=== PATIENT | male | born 1980 | race Caucasian/White ===

== ENCOUNTER 2025-03-21 02:22 | Day surgery (SDC) | payer OTHER, SELFPAY ==
[2025-03-09 10:35] VITALS: BMI 34.4
--- OUTSIDE RECORDS SUMMARY | 2025-03-21 02:24 | XMS_ITS | Clinical Summary ---
Author Organization [facility] Address [address] [place] [id number] Care Team Providers Care [employer] Worker Name Role Phone Unavailable Primary Care Provider Unavailabl e Social History Tobacco Use Types Packs/Day Years Used Date Smoking Tobacco: Never Assessed Sex and Gender Information Value Date Recorded Sex Assigned at Not on file Legal Sex Male 7:40 PM CDT Gender Identity Not on file Sexual Orientation Not on file Plan of Treatment Health Maintenance Due Date Last Done Comments Colorectal Cancer Screening Colonoscopy (10 Years) 1979 Annual Physical 1982 Hepatitis C 1997 DTaP, Tdap and Td Vaccines ( 1 - Tdap) 1998 Hepatitis B Vaccines (1 of 3 - 19+ 3-dose series) 1998 COVID-19 Vaccine (2023-2 5 season) 2024 Meningococcal B Vaccine Aged Out No l onger eligible based on patient's age to complete this topic Meningococcal Vaccine Aged Out No vazquez sukhjinder eligible based on patient's age to complete this topic Pneumococcal Vaccine: Pediat rics (0 to 5 Years) and At-Risk Patients (6 to 49 Years) Aged Out No longer eligible b ased on patient's age to complete this topic RSV Immunizations Under 20 Months Aged Out No longer eligible based on patient's age to complete this topic
[2025-03-21 11:36] VITALS: BP 137/95; PULSE 101; RESP 20; TEMP 36.6; O2SAT 100
[2025-03-21] MEDS: LACTATED RINGERS 1,000 ML 150 ML IV CONT (11:50)
[2025-03-21 11:51] LABS: Glucose Point of Care 100 mg/dl (65-105)
--- NOTE | 2025-03-21 12:38 | PM.HPGS ---
History of Present Illness History of Present Illness Consent: Risks, benefits, and alternatives have been discussed and questions answered. Patient agrees to proceed with procedure. Chief complaint: Screening Narrative: Alex Tello is a 45 year old male here for first screening colonoscopy Review of Systems Review of Systems: All systems reviewed & are unremarkable except as noted in HPI and below PMFSH Past Medical History Medical History BMI 38.0-38.9,adult BMI 37.0-37.9, adult BMI greater than 40 Surgical History Surgical History Hx of LASIK Family History Family History Grandparent Hypertension Cerebrovascular accident Family history of coronary artery disease Family history of malignant neoplasm of esophagus Diabetes mellitus Mother Hypertension Father No problems noted. Sibling No problems noted. Social History Social History Smoking packs per day: 1 Smoking cigarettes per day: 20.0 Years smoked: 5 Smoking pack-years: 5.00 Smoking status: Former smoker Tobacco type: cigarettes Second hand tobacco smoke exposure: No Alcohol intake: current Alcohol use details: 3 drinks maybe 3 times a year Substance use: never Substance use type: does not use Do You Feel Safe in your Home?: Yes Lack of Transportation: No Lack of Food: Never True Current Housing: I Have Housing Concerned About Future Housing: No Difficulty Paying Gas/Electric Bills: No Difficulty Paying for Meds: No Currently Unemployed: No Education: Bachelor's Degree Difficulty w/ Childcare or Family Care: No Living arrangements: with family Occupation/Education: occupation 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 Gender identity (if verbalized by the patient): Male Spiritual care concerns: No Meds Home Medications and Allergies Home Medications ?Medication ?Instructions ?Recorded ?Confirmed ?Type tadalafil 20 mg tablet 20 mg PO DAILY PRN sexual activity 12/11/22 03/09/25 Rx #6 tabs cetirizine 10 mg tablet (Zyrtec) 10 mg PO DAILY PRN allergy symptoms 03/12/23 03/09/25 History omeprazole 20 mg capsule,delayed See Rx Instructions PO DAILY PRN 01/06/25 03/09/25 History release acid reflux fluticasone propionate 50 1 spray intranasal DAILY PRN 03/09/25 03/09/25 History mcg/actuation nasal allergy symptoms spray,suspension (24 Hour Allergy Relief) tirzepatide 12.5 mg/0.5 mL 12.5 mg (0.5 mL) subcut WEEKLY #4 03/20/25 03/21/25 Rx subcutaneous pen injector mL (Mounjaro) Allergies Allergy/AdvReac Type Severity Reaction Status Date / Time Penicillins Allergy Unknown Hives with Verified 03/21/25 11:33 minor respiratory issues. Vital Signs Vital Signs - 24 hr 03/21/25 11:36 Temperature 97.8 F Pulse Rate 101 H Respiratory Rate 20 Blood Pressure 137/95 H Pulse Oximetry 100 Oxygen Delivery Room Air Exam Const: General: comfortable and no acute distress HENMT: Face/Nose/Sinus: Normal nares present Eyes: General: appearance normal, both eyes and all related structures Neck: Neck: no JVD Resp: Auscultation: clear to auscultation bilaterally Cardio: Rate: regular rate Rhythm: regular rhythm GI: Inspection: non-distended GI Palp: Yes Soft to palpation Skin: General skin exam: normal color Neuro: General: gait normal Speech: normal speech Extrem: General: normal to inspection Psych: Mental Status: mental status grossly normal Assessment and Plan Assessment and plan (1) Screening for colon cancer: Code(s): Z12.11 - Encounter for screening for malignant neoplasm of colon Status: Acute Assessment and Plan: colonoscopy
--- NOTE | 2025-03-21 12:42 | P.PNAN_ITS ---
Anes - Initial Pre Proc Eval Procedure: Operation Date: 03/21/25 12:30 Proposed Procedures p Screening Colonoscopy - Edy Aguirre MD Date/Time: 03/21/25 12:42 Surgeon: Edy Aguirre MD Pre Op Diagnosis: Screening Patient Data Age: 45 Gender: M Height: 1.78 m Weight: 113.4 kg Last Vital Signs Temp 36.6 C 03/21/25 11:36 Pulse 101 H 03/21/25 11:36 Resp 20 03/21/25 11:36 BP 137/95 H 03/21/25 11:36 Pulse Ox 100 03/21/25 11:36 O2 Del Method Room Air 03/21/25 11:36 Allergies Allergy/AdvReac Type Severity Reaction Status Date / Time Penicillins Allergy Unknown Hives with Verified 03/21/25 11:33 minor respiratory issues. Home Medications ?Medication ?Instructions ?Recorded ?Confirmed ?Type tadalafil 20 mg tablet 20 mg PO DAILY PRN sexual activity 12/11/22 03/09/25 Rx #6 tabs cetirizine 10 mg tablet (Zyrtec) 10 mg PO DAILY PRN allergy symptoms 03/12/23 03/09/25 History omeprazole 20 mg capsule,delayed See Rx Instructions PO DAILY PRN 01/06/25 03/09/25 History release acid reflux fluticasone propionate 50 1 spray intranasal DAILY PRN 03/09/25 03/09/25 History mcg/actuation nasal allergy symptoms spray,suspension (24 Hour Allergy Relief) tirzepatide 12.5 mg/0.5 mL 12.5 mg (0.5 mL) subcut WEEKLY #4 03/20/25 03/21/25 Rx subcutaneous pen injector mL (Mounjaro) Laboratory Tests 03/21/25 11:41 POC Capillary Glucose 100 mg/dl (65-105) Patient hx anesthesia problems: none Family hx anesthesia problems: none Results Review: All pre-operative results and documents have been reviewed as part of the pre- operative evaluation. [facility] Past Medical History Medical History BMI 38.0-38.9,adult BMI 37.0-37.9, adult BMI greater than 40 Surgical History Surgical History Hx of XIOMARA Family History Family History Grandparent Hypertension Cerebrovascular accident Family history of coronary artery disease Family history of malignant neoplasm of esophagus Diabetes mellitus Mother Hypertension Father No problems noted. Sibling No problems noted. Social History Social History Smoking packs per day: 1 Smoking cigarettes per day: 20.0 Years smoked: 5 Smoking pack-years: 5.00 Smoking status: Former smoker Tobacco type: cigarettes Second hand tobacco smoke exposure: No Alcohol intake: current Alcohol use details: 3 drinks maybe 3 times a year Substance use: never Substance use type: does not use Do You Feel Safe in your Home?: Yes Lack of Transportation: No Lack of Food: Never True Current Housing: I Have Housing Concerned About Future Housing: No Difficulty Paying Gas/Electric Bills: No Difficulty Paying for Meds: No Currently Unemployed: No Education: Bachelor's Degree Difficulty w/ Childcare or Family Care: No Living arrangements: with family Occupation/Education: occupation 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 Informed Consent: The patient's anesthetic plan and its attendant risks and benefits were discuss ed with the patient/family/POA. Questions were solicited and answers provided to the satisfaction of the patient/family/POA.
[2025-03-21 13:13] VITALS: BP 106/65; PULSE 82; RESP 18; O2SAT 97
[2025-03-21 13:23] VITALS: BP 112/72; PULSE 79; RESP 11; O2SAT 98
[2025-03-21 13:33] VITALS: BP 129/82; PULSE 79; RESP 21; O2SAT 98
== END 2025-03-21 13:42 | disposition home or self-care (01) ==
PROVIDERS: PCP Family Medicine; Referring Provider Physician Assistant Medical; Visit Provider Internal Medicine Gastroenterology
PROC: 0DJD8ZZ Inspection of Lower Intestinal Tract, Via Natural or Artificial Opening Endoscopic (ICD-10-PCS; CPT 45378; principal; 2025-03-21 12:30)
DX: Z12.11 Encounter for screening for malignant neoplasm of colon (principal); Z87.891 Personal history of nicotine dependence; E66.9 Obesity, unspecified; Z68.35 Body mass index [BMI] 35.0-35.9, adult; Z79.85 Long-term (current) use of injectable non-insulin antidiabetic drugs
CPT/HCPCS: 45378; 82948; J2003; J2704; J7120